=== PATIENT | male | born 1990 | race Caucasian/White ===

== ENCOUNTER 2017-02-13 03:52 | Emergency (ER) | payer SELFPAY ==
[~2017-02-13] VITALS: Ht 180.3 cm; Wt 65.0 kg
[2017-02-13 04:01] VITALS: BP 122/74; PULSE 120; RESP 20; TEMP 98.3; O2SAT 96
--- NOTE | 2017-02-13 04:23 | PD ---
HPI Chief Complaint: Medical Clearance Time Seen by Provider: 04:07 Travel History International Travel<30 days: No Contact w/Intl Traveler<30days: No Traveled to known affect area: No History of Present Illness HPI 26-year-old male presents by ambulance after being found at a [employer] sitting on the ground and unable to ambulate. He notes drinking lots of alcohol and wanting to hurt himself because his girlfriend broke up with them. He denies other complaints and is tearful and initial history is limited. [facility] Past Medical History Medical History: Unable to Obtain Past Surgical History Surgical History: Unable to Obtain Social History Alcohol Use: Yes Tobacco Use: Yes Substance Use: No Review of Systems ROS Limitations: Intoxication Physical Exam Exam Limitations: Intoxication Narrative GENERAL: Well-nourished, well-developed patient. Tearful SKIN: Warm and dry. HEAD: Normocephalic and atraumatic. EYES: No injection or drainage. ENT: No nasal drainage noted. NECK: Supple, trachea midline. CARDIOVASCULAR: Regular rate and rhythm RESPIRATORY: Breath sounds equal bilaterally. No accessory muscle use. NEUROLOGICAL: Awake and alert to name. Moves all extremities. Slurred speech. Data Data Last Documented VS Vital Signs Date Time Temp Pulse Resp B/P (MAP) Pulse Ox O2 Delivery O2 Flow Rate FiO2 02/13/17 04:01 98.3 120 20 122/74 (90) 96 Orders Orders Complete Blood Count With Diff (02/13/17 04:07) Comprehensive Metabolic Panel (02/13/17 04:07) Psych Screen (02/13/17 04:07) Drug Screen, Random Urine (02/13/17 04:07) Alcohol (Ethanol) (02/13/17 04:07) Labs Laboratory Tests Test 02/13/17 05:11 02/13/17 05:15 White Blood Count 7.0 TH/MM3 Red Blood Count 4.61 MIL/MM3 Hemoglobin 16.3 GM/DL Hematocrit 45.8 % Mean Corpuscular Volume 99.3 FL Mean Corpuscular Hemoglobin 35.3 PG Mean Corpuscular Hemoglobin Concent 35.5 % Red Cell Distribution Width 13.1 % Platelet Count 220 TH/MM3 Mean Platelet Volume 6.6 FL Neutrophils (%) (Auto) 68.1 % Lymphocytes (%) (Auto) 24.3 % Monocytes (%) (Auto) 6.6 % Eosinophils (%) (Auto) 0.8 % Basophils (%) (Auto) 0.2 % Neutrophils # (Auto) 4.8 TH/MM3 Lymphocytes # (Auto) 1.7 TH/MM3 Monocytes # (Auto) 0.5 TH/MM3 Eosinophils # (Auto) 0.1 TH/MM3 Basophils # (Auto) 0.0 TH/MM3 CBC Comment DIFF FINAL Differential Comment Blood Urea Nitrogen 8 MG/DL Creatinine 0.75 MG/DL Random Glucose 103 MG/DL Total Protein 7.7 GM/DL Albumin 4.0 GM/DL Calcium Level 7.9 MG/DL Alkaline Phosphatase 101 U/L Aspartate Amino Transf (AST/SGOT) 23 U/L Alanine Aminotransferase (ALT/SGPT) 25 U/L Total Bilirubin 0.4 MG/DL Sodium Level 141 MEQ/L Potassium Level 3.7 MEQ/L Chloride Level 108 MEQ/L Carbon Dioxide Level 24.2 MEQ/L Anion Gap 9 MEQ/L Estimat Glomerular Filtration Rate 124 ML/MIN Ethyl Alcohol Level 368 MG/DL [facility] Medical Decision Making Medical Screen Exam Complete: Yes Emergency Medical Condition: Yes Medical Record Reviewed: Yes (past history confirmed) Interpretation(s) CBC & BMP Diagram 02/13/17 05:11 Total Protein 7.7, Albumin 4.0, Calcium Level 7.9 L, Alkaline Phosphatase 101, Aspartate Amino Transf (AST/SGOT) 23, Alanine Aminotransferase (ALT/SGPT) 25, Total Bilirubin 0.4 Differential Diagnosis Alcohol intoxication, depression, coingestion Narrative Course Will check lab work for medical clearance. Vaughn act placed Alcohol level is significantly elevated in the 300s, other lab work is stable and patient denies other complaints. Medically cleared Diagnosis Primary Impression: Alcohol intoxication Qualified Codes: F10.929 - Alcohol use, unspecified with intoxication, unspecified Additional Impression: Suicidal ideation Octavia Gongora MD Feb 13, 2017 04:22
[2017-02-13 05:33] LABS: AUTOMATED NEUTROPHIL # 4.8 TH/MM3 (1.8-7.7); BASOPHIL % 0.2 % (0.0-2.0); EOSINOPHIL # 0.1 TH/MM3 (0-0.4); EOSINOPHIL % 0.8 % (0.0-4.0); HEMATOCRIT 45.8 % (39.0-51.0); HEMO FLAGS DIFF FINAL; LYMPH % 24.3 % (9.0-44.0); LYMPHOCYTE # 1.7 TH/MM3 (1.0-4.8); MEAN CELL VOLUME 99.3 FL (80.0-100.0); MEAN CORPUSCULAR HEMOGLOBIN 35.3 PG (27.0-34.0); MEAN CORPUSCULAR HGB CONC 35.5 % (32.0-36.0); MONO % 6.6 % (0.0-8.0); NEUT % 68.1 % (16.0-70.0); PLATELET COUNT 220 TH/MM3 (150-450); RED BLOOD COUNT 4.61 MIL/MM3 (4.50-5.90); RED CELL DISTRIBUTION WIDTH 13.1 % (11.6-17.2)
[2017-02-13 05:46] LABS: ALT (GPT) 25 U/L (12-78); ANION GAP 9 MEQ/L (5-15); AST (GOT) 23 U/L (15-37); BICARBONATE 24.2 MEQ/L (21.0-32.0); BLOOD UREA NITROGEN 8 MG/DL (7-18); CHLORIDE 108 MEQ/L (98-107); GLOMERULAR FILTRATION RATE 124 ML/MIN (>89); POTASSIUM 3.7 MEQ/L (3.5-5.1); SODIUM (NA) 141 MEQ/L (136-145)
[2017-02-13 05:49] LABS: ALKALINE PHOSPHATASE 101 U/L (45-117); TOTAL BILIRUBIN ADULT 0.4 MG/DL (0.2-1.0)
[2017-02-13 05:54] LABS: ALCOHOL 368 MG/DL (0-5)
[2017-02-13 07:09] VITALS: BP 118/71; PULSE 129; RESP 19; O2SAT 97
--- NOTE | 2017-02-13 10:14 | PD ---
Physical Exam Date Seen by Provider: Feb 13, 2017 Time Seen by Provider: 10:10 Narrative This is a 18-year-old male who is brought in her Vaughn act and intoxicated. The patient seen initially by Dr. Gongora. He was medically cleared for psychiatric evaluation. Data Data Last Documented VS Vital Signs Date Time Temp Pulse Resp B/P (MAP) Pulse Ox O2 Delivery O2 Flow Rate FiO2 02/13/17 07:09 129 19 118/71 (87) 97 Room Air 02/13/17 04:01 98.3 Orders Orders Complete Blood Count With Diff (02/13/17 04:07) Comprehensive Metabolic Panel (02/13/17 04:07) Psych Screen (02/13/17 04:07) Drug Screen, Random Urine (02/13/17 04:07) Alcohol (Ethanol) (02/13/17 04:07) Diet Regular Basic (02/13/17 Breakfast) Labs Laboratory Tests Test 02/13/17 05:11 02/13/17 05:15 White Blood Count 7.0 TH/MM3 Red Blood Count 4.61 MIL/MM3 Hemoglobin 16.3 GM/DL Hematocrit 45.8 % Mean Corpuscular Volume 99.3 FL Mean Corpuscular Hemoglobin 35.3 PG Mean Corpuscular Hemoglobin Concent 35.5 % Red Cell Distribution Width 13.1 % Platelet Count 220 TH/MM3 Mean Platelet Volume 6.6 FL Neutrophils (%) (Auto) 68.1 % Lymphocytes (%) (Auto) 24.3 % Monocytes (%) (Auto) 6.6 % Eosinophils (%) (Auto) 0.8 % Basophils (%) (Auto) 0.2 % Neutrophils # (Auto) 4.8 TH/MM3 Lymphocytes # (Auto) 1.7 TH/MM3 Monocytes # (Auto) 0.5 TH/MM3 Eosinophils # (Auto) 0.1 TH/MM3 Basophils # (Auto) 0.0 TH/MM3 CBC Comment DIFF FINAL Differential Comment Blood Urea Nitrogen 8 MG/DL Creatinine 0.75 MG/DL Random Glucose 103 MG/DL Total Protein 7.7 GM/DL Albumin 4.0 GM/DL Calcium Level 7.9 MG/DL Alkaline Phosphatase 101 U/L Aspartate Amino Transf (AST/SGOT) 23 U/L Alanine Aminotransferase (ALT/SGPT) 25 U/L Total Bilirubin 0.4 MG/DL Sodium Level 141 MEQ/L Potassium Level 3.7 MEQ/L Chloride Level 108 MEQ/L Carbon Dioxide Level 24.2 MEQ/L Anion Gap 9 MEQ/L Estimat Glomerular Filtration Rate 124 ML/MIN Ethyl Alcohol Level 368 MG/DL Urine Opiates Screen NEG Urine Barbiturates Screen NEG Urine Amphetamines Screen POS Urine Benzodiazepines Screen NEG Urine Cocaine Screen NEG Urine Cannabinoids Screen NEG MDM Medical Record Reviewed: Yes Supervised Visit with YONAS: No Narrative Course 26-year-old male brought in initially under [employer] act. Patient has a history of alcohol and cocaine use. The patient has been seen and evaluated by Dr. Vang. He has lifted the Vaughn act. The patient be discharged. Diagnosis Primary Impression: Alcohol intoxication Qualified Codes: F10.929 - Alcohol use, unspecified with intoxication, unspecified Additional Impressions: Suicidal ideation medically cleared Referrals: [facility] (Out patient) Additional Instruction: Stop drinking alcohol and avoid drugs. Follow up with outpatient act. Scripts No Active Prescriptions or Reported Meds Disposition: 01 DISCHARGE HOME Condition: Stable Bereket Larkin MD Feb 13, 2017 10:14
--- NOTE | 2017-02-13 14:14 | PD.PSY.CON ---
Provisional Diagnosis Admission Date [place] I. Alcohol induced mood disorder, alcohol use disorder [place] II. Deferred, [place] III. No significant medical history History of Present Illness Service Psychiatry Consult Requested By Reason for Consult Suicidal statements Primary Care Physician No Primary Care Physician HPI The patient is a 26-year-old man, domiciled alone in [facility], employed , single, with no any previous psychiatric history, no previous suicidal attempts, alcohol use disorder, significant medical history, who presents by ambulance after being found at a [employer] sitting on the ground and unable to ambulate. He notes drinking lots of alcohol and wanting to hurt himself because his girlfriend broke up with them. He denies other complaints and is tearful and initial history is limited. Patient was Vaughn acted due to suicidal statements. On psychiatric evaluation today patient is calm, cooperative and pleasant. Patient denies depression, the patient denies that he ever made any suicidal statement. 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 Patient denies suicidal and homicidal ideation, he denies visual and auditory hallucinations. No paranoia, no delusions, no agitation or aggressive behavior present. Patient is oriented 3. Patient reports daily use of alcohol , 3-6 beers, denies the use of other drugs. Patient denied the use of amphetamine yesterday, he was confronted about toxicology, but he still denies. Review of Systems Constitutional: DENIES: Diaphoretic episodes, Fatigue, Fever, Weight gain, Weight loss, Chills, Dizziness, Change in appetite, Night Sweats Endocrine: DENIES: Heat/cold intolerance, Polydipsia, Polyuria, Polyphagia Eyes: DENIES: Blurred vision, Diplopia, Eye inflammation, Eye pain, Vision loss , Photosensitivity, Double Vision Ears, nose, mouth, throat: DENIES: Tinnitus, Hearing loss, Vertigo, Nasal discharge, Oral lesions, Throat pain, Hoarseness, Ear Pain, Running Nose, Epistaxis, Sinus Pain, Toothache, Odynophagia Respiratory: DENIES: Apneas, Cough, Snoring, Wheezing, Hemoptysis, Sputum production, Shortness of breath Cardiovascular: DENIES: Chest pain, Palpitations, Syncope, Dyspnea on Exertion , PND, Lower Extremity Edema, Orthopnea, Claudication Gastrointestinal: DENIES: Abdominal pain, Black stools, Bloody stools, Constipation, Diarrhea, Nausea, Vomiting, Difficulty Swallowing, Anorexia Genitourinary: DENIES: Sexual dysfunction, Urinary frequency, Urinary incontinence, Urgency, Hematuria, Dysuria, Nocturia, Penile Discharge, Testicular Pain, Testicular Swelling Musculoskeletal: DENIES: Joint pain, Muscle aches, Stiffness, Joint Swelling, Back pain, Neck pain Integumentary: DENIES: Abnormal pigmentation, Nail changes, Pruritus, Rash Hematologic/lymphatic: DENIES: Bruising, Lymphadenopathy Immunologic/allergic: DENIES: Eczema, Urticaria Neurologic: DENIES: Abnormal gait, Headache, Localized weakness, Paresthesias, Seizures, Speech Problems, Tremor, Poor Balance Past Family Social History Coded Allergies: No Known Allergies (Verified Allergy, Unknown, 02/13/17) No Active Prescriptions or Reported Meds Family Psych History Patient denies family psychiatric history Social History Patient was born and raised in [place], he lives in [facility] alone, his single, 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 2) Employed Physical Exam Vital Signs Vital Signs Date Time Temp Pulse Resp B/P (MAP) Pulse Ox O2 Delivery O2 Flow Rate FiO2 02/13/17 10:22 02/13/17 07:09 129 19 97 Room Air 02/13/17 04:01 98.3 Lab Results Test 02/13/17 05:11 02/13/17 05:15 White Blood Count 7.0 TH/MM3 Red Blood Count 4.61 MIL/MM3 Hemoglobin 16.3 GM/DL Hematocrit 45.8 % Mean Corpuscular Volume 99.3 FL Mean Corpuscular Hemoglobin 35.3 PG Mean Corpuscular Hemoglobin Concent 35.5 % Red Cell Distribution Width 13.1 % Platelet Count 220 TH/MM3 Mean Platelet Volume 6.6 FL Neutrophils (%) (Auto) 68.1 % Lymphocytes (%) (Auto) 24.3 % Monocytes (%) (Auto) 6.6 % Eosinophils (%) (Auto) 0.8 % Basophils (%) (Auto) 0.2 % Neutrophils # (Auto) 4.8 TH/MM3 Lymphocytes # (Auto) 1.7 TH/MM3 Monocytes # (Auto) 0.5 TH/MM3 Eosinophils # (Auto) 0.1 TH/MM3 Basophils # (Auto) 0.0 TH/MM3 CBC Comment DIFF FINAL Differential Comment Blood Urea Nitrogen 8 MG/DL Creatinine 0.75 MG/DL Random Glucose 103 MG/DL Total Protein 7.7 GM/DL Albumin 4.0 GM/DL Calcium Level 7.9 MG/DL Alkaline Phosphatase 101 U/L Aspartate Amino Transf (AST/SGOT) 23 U/L Alanine Aminotransferase (ALT/SGPT) 25 U/L Total Bilirubin 0.4 MG/DL Sodium Level 141 MEQ/L Potassium Level 3.7 MEQ/L Chloride Level 108 MEQ/L Carbon Dioxide Level 24.2 MEQ/L Anion Gap 9 MEQ/L Estimat Glomerular Filtration Rate 124 ML/MIN Ethyl Alcohol Level 368 MG/DL Urine Opiates Screen NEG Urine Barbiturates Screen NEG Urine Amphetamines Screen POS Urine Benzodiazepines Screen NEG Urine Cocaine Screen NEG Urine Cannabinoids Screen NEG Mental Status Examination Appearance: Appropriate Consciousness: Alert Orientation: x4 Motor Activity: Normal gait Speech: Unremarkable Language: Adequate Fund of Knowledge: Adequate Attention and Concentration: Adequate Memory: Unremarkable Mood: Appropriate Affect: Appropriate Thought Process & Associations: Intact Thought Content: Appropriate Hallucination Type: None Delusion Type: None Suicidal Ideation: No Suicidal Plan: No Suicidal Intention: No Homicidal Ideation: No Homicidal Plan: No Homicidal Intention: No Insight: Adequate Judgment: Adequate Assessment & Plan Problem List: (1) Alcohol abuse with alcohol-induced mood disorder ICD Codes: F10.14 - Alcohol abuse with alcohol-induced mood disorder Assessment & Plan: At the moment of this psychiatric evaluation the patient does not present any acute, concerning or significant evidence of depression, anxiety, sarahy or psychosis. She denies suicidal and homicidal ideation, he denies visual and auditory hallucinations. Recent suicidal statement was before the result of acute alcohol intoxication. He does not meet criteria for psychiatric admission at this moment. Detox referral offered, but patient declined. Extensive support, motivation psycho education provided. Vaughn act will be lifted. Assessment & Plan Estimated LOS: Bradley Jones MD Feb 13, 2017 14:14
== END 2017-02-13 10:22 | disposition home or self-care (01) ==
LOC: NEPC 03:52
DX: F10.929 Alcohol use, unspecified with intoxication, unspecified (principal); R45.851 Suicidal ideations; F17.200 Nicotine dependence, unspecified, uncomplicated
CPT/HCPCS: 80053; 80307; 85025; 99284